=== PATIENT | male | born 1980 | race Caucasian/White ===

== ENCOUNTER → 2018-08-28 11:32 | Outpatient (CLI) | payer SELFPAY ==
[2018-08-28 11:50] VITALS: BP 117/76; PULSE 66; RESP 14; TEMP 36.7; O2SAT 98; BMI 27.7
--- NOTE | 2018-08-28 12:23 | HTC.HP_ITS ---
- Problem List (1) Hemophilia B Status: Chronic Subjective Date of Service:: 08/28/18 Chief Complaint: Hemophilia annual follow-up History of Present Illness: Hemophilia annual follow-up Used factor once first week of August 2018 after an accidental fall off ladder, bruised lower back, improving Health History: Past Medical History (Last Reviewed 08/28/18 @ 11:50 by Lauren Gao) HEMOPHILIA B FACTOR IX DEFICIENCY (Acute) Family History (Last Reviewed 08/28/18 @ 11:50 by Lauren Gao) Brother Hemophilia Allergies/Adverse Reactions: Allergy/AdvReac Type Severity Reaction Status Date / Time No Known Allergies Allergy Verified 08/28/18 11:50 Risk Factors Social History Smoking Status Never smoker Tobacco Risk Data: Tobacco Risk Smoking Status Never smoker Type of tobacco: Smokeless tobacco usage: Items/Day: Year started: Years used: Counseled to quit/cut down: Reason for no counseling performed: Reason for no pharmacotherapy: Tobacco use comments: Passive smoke exposure: Substance Risk Drug use: No Caffeine use [drinks/day]: 2 Alcohol use: Type of alcohol: Drinks per day: Has patient felt the need to cut down: Has the patient been annoyed by complaints: Has the patient felt guilty about drinking: Has the patient needed an eye electronic calibration technician in the mornings: Comments: occasional Review of Systems Constitutional:: Denies: Fever, Sweats, Weight loss, Appetite change, Chills Cardiovascular:: Denies: Chest pain, Palpitations, Dyspnea on exertion, Orthopnea, PND, Shortness of breath Respiratory: Denies: Cough, Hemoptysis, Shortness of Breath, Wheezing Gastrointestinal:: Denies: Abdominal pain, Nausea, Vomiting, Diarrhea, Constipation, Hematochezia Genitourinary: Denies: Dysuria, Hematuria, 15, Flank pain Musculoskeletal:: Reports: Back pain - Little residual pain from the fall. Denies: Myalgia, Arthralgia Skin: Denies: Rash, Skin Changes, Wounds Neurological:: Denies: Headache, Dizziness, Visual changes, Tinnitus, Hearing loss Psychiatric: Denies: Anxiety, Depression, Homicidal Ideations, Suicidal Ideations Vital Signs Height 5 ft 11 in Weight: 90.265 kg Weight in Pounds 199.0 lbs Pulse Ox 98 Temperature 98.0 F Pulse Rate 66 Respiratory Rate 14 Blood Pressure 117/76 Blood Pressure Position Sitting - Physical Exam General: Alert, Oriented x3, No apparent distress HEENT: Atraumatic, PERRLA, EOMI, Normocephalic Oropharynx:: Dry mucosa Neck:: Supple, Trachea midline. Negative for: JVD, bilateral Cardiac:: Regular rate, Regular rhythm, Normal S1, Normal S2. Negative for: Murmur Lungs: Clear to auscultation, Excusion symmetrical. Negative for: Rhonchi, Wheezes Abdomen:: Soft, Non-tender, Non-distended. Negative for: Hepatosplenomegaly Extremities:: Negative for: Cyanosis, Edema Neurological: Neuro grossly intact Skin:: Ecchymosis - 1 cm bruise overlying the right SI joint, mild tenderness. Negative for: Lesions, Rash, Petechiae Psychiatric:: Appropriate affect, Euthymic Lymphatics:: Negative for: Cervical lymphadenopathy, Supraclavicular lymphadenopathy Assessment and Plan Hemophilia annual screening visit. Reviewed: - On-demand therapy. - Appropriate oral hygiene and regular dental care is essential. - An appropriate exercise regimen encouraged for maintenance of a healthy weight, cardiovascular risk reduction, and positive effects on strength, flexibility, balance, joint stabilization, bone density, socialization, and psychological health. - Medicines that increase the risk of bleeding should be avoided namely anticoagulants, aspirin, and other nonsteroidal anti-inflammatory drugs (NSAIDs). - Herbal remedies and dkkh-fiz-uvalipa supplements such as fish oil, may increase bleeding risk. - Pain can be treated with local measures (eg, cold packs, immobilization, splinting), and acetaminophen. - Cardiovascular disease prevention : focus on diet, exercise, smoking avoidance, and control of hypertension and hypercholesterolemia. - Planning for invasive procedures and elective surgery. Patient was also evaluated by the Hemophilia multidisciplinary team on site and Dr Ahumada via video conferencing. Primary Care Provider: No Primary Care Phys Referring Provider: Mohit Ahumada MD
--- OUTSIDE RECORDS SUMMARY | 2018-10-14 05:03 | XMS RPT_ITS ---
:1980 Author Organization [facility] Care Team Providers Name Role Phone Braydon Echeverria Attending Unavailable Mohit Ahumada Referring Unavailable Primay Care Physicia, No Primary Care Unavailable Braydon Echeverria Attending Unavailable Mohit Ahumada Referring Unavailable Primay Care Physicia, No Primary Care Unavailable Braydon Echeverria Consulting Unavailable PROBLEMS PROBLEMS No Problem Records FoundPROCEDURES PROCEDURES No Procedure Records FoundRESULTS RESULTS HTC: OFFICE NOTE Observed: 08/28/2018 Status: F Source: [place] 12:24 PM [facility] Medical Records Department [address] [place] [id number] HTC: Office Note 08/28/18 1219 MR#: [id number] Acct: [id number] Name: ASHWIN LORD Rep #: [id number] : 1980 38 From: Braydon Echeverria MD PCP: Care Physician, No Primary Status: REG CLI Y Location: [facility] - Problem List (1) Hemophilia B Status: Chronic Subjective Date of Service:: 08/28/18 Chief Complaint: Hemophilia annual follow-up History of Present Illness: Hemophilia annual follow-up Used factor once first week of August 2018 after an accidental fall off ladder, bruised lower back, improving Health History: Past Medical History (Last Reviewed 08/28/18 @ 11:50 by Lauren Gao) HEMOPHILIA B FACTOR IX DEFICIENCY (Acute) Family History (Last Reviewed 08/28/18 @ 11:50 by Lauren Gao) Brother Hemophilia Allergies/Adverse Reactions: Allergy/AdvReac Type Severity Reaction Status Date / Time No Known Allergies Allergy Verified 08/28/18 11:50 Risk Factors Social History Smoking Status Never smoker Tobacco Risk Data: Tobacco Risk Smoking Status Never smoker Type of tobacco: Smokeless tobacco usage: Items/Day: Year started: Years used: Counseled to quit/cut down: Reason for no counseling performed: Reason for no pharmacotherapy: Tobacco use comments: Passive smoke exposure: Substance Risk Drug use: No Caffeine use [drinks/day]: 2 Alcohol use: Type of alcohol: Drinks per day: Has patient felt the need to cut down: Has the patient been annoyed by complaints: Has the patient felt guilty about drinking: Has the patient needed an eye arc cutter in the mornings: Comments: occasional Review of Systems Constitutional:: Denies: Fever, Sweats, Weight loss, Appetite change, Chills Cardiovascular:: Denies: Chest pain, Palpitations, Dyspnea on exertion, Orthopnea, PND, Shortness of breath Respiratory: Denies: Cough, Hemoptysis, Shortness of Breath, Wheezing Gastrointestinal:: Denies: Abdominal pain, Nausea, Vomiting, Diarrhea, Constipation, Hematochezia Genitourinary: Denies: Dysuria, Hematuria, 15, Flank pain Musculoskeletal:: Reports: Back pain - Little residual pain from the fall. Denies: Myalgia, Arthralgia Skin: Denies: Rash, Skin Changes, Wounds Neurological:: Denies: Headache, Dizziness, Visual changes, Tinnitus, Hearing loss Psychiatric: Denies: Anxiety, Depression, Homicidal Ideations, Suicidal Ideations Vital Signs Height 5 ft 11 in Weight: 90.265 kg Weight in Pounds 199.0 lbs Pulse Ox 98 - Physical Exam General: Alert, Oriented x3, No apparent distress HEENT: Atraumatic, PERRLA, EOMI, Normocephalic Oropharynx:: Dry mucosa Neck:: Supple, Trachea midline. Negative for: JVD, bilateral Cardiac:: Regular rate, Regular rhythm, Normal S1, Normal S2. Negative for: Murmur Lungs: Clear to auscultation, Excusion symmetrical. Negative for: Rhonchi, Wheezes Abdomen:: Soft, Non-tender, Non-distended. Negative for: Hepatosplenomegaly Extremities:: Negative for: Cyanosis, Edema Neurological: Neuro grossly intact Skin:: Ecchymosis - 1 cm bruise overlying the right SI joint, mild tenderness. Negative for: Lesions, Rash, Petechiae Psychiatric:: Appropriate affect, Euthymic Lymphatics:: Negative for: Cervical lymphadenopathy, Supraclavicular lymphadenopathy Assessment and Plan Hemophilia annual screening visit. Reviewed: - On-demand therapy. - Appropriate oral hygiene and regular dental care is essential. - An appropriate exercise regimen encouraged for maintenance of a healthy weight, cardiovascular risk reduction, and positive effects on strength, flexibility, balance, joint stabilization, bone density, socialization, and psychological health. - Medicines that increase the risk of bleeding should be avoided namely anticoagulants, aspirin, and other nonsteroidal anti-inflammatory drugs (NSAIDs). - Herbal remedies and dyiq-qtd-celljuk supplements such as fish oil, may increase bleeding risk. - Pain can be treated with local measures (eg, cold packs, immobilization, splinting), and acetaminophen. - Cardiovascular disease prevention : focus on diet, exercise, smoking avoidance, and control of hypertension and hypercholesterolemia. - Planning for invasive procedures and elective surgery. Patient was also evaluated by the Hemophilia multidisciplinary team on site and Dr Ahumada via video conferencing. Primary Care Provider: No Primary Care Phys Referring Provider: Mohit Ahumada MD 08/28/18 1224 <Electronically signed by Braydon Echeverria MD> Date Braydon Echeverria MD Cosigner Signature (if applicable): Date CC: Signed ALLERGIES ALLERGIES DATE TYPE / CODE NAME / CODE REACTION SEVERITY SOURCE 08/28/2018 Drug No Known Unknown [facility] Allergy/4160 Allergies/F00 [facility] 18858(SNOMED [id number](RXNOR Repository CT) M) ENCOUNTERS ENCOUNTERS ADMIT/DISCHARGE ACCOUNT ADMITTING ENCOUNTER LOCATION SOURCE NUMBER CLASS 08/28/2018 [id number] Ambulatory BMSBuilding:[address] [place].CF.[facility] Repository 08/28/2018 [id number] Ambulatory Caden Caden [facility] ing:[facility] Repository PAYERS PAYERS ENCOUNTER GUARANTOR PAYER SUBSCRIBER SOURCE 08/28/2018 ASHWIN Gunn Primary NOT GIVENUNK Caden [id number] Insurance:SELF PAY [place], [place] Number: Effective Repository [id number]: [phone] Date:2018-08-28 [phone] () 08/28/2018 ASHWIN Gunn Primary NOT GIVENUNK [place] [id number] Insurance:SELF PAY [place] Number: Effective Repository [phone]: [phone] Date:2018-05-22 [phone] ()
== END ==
PROVIDERS: Referring Provider Internal Medicine Hematology & Oncology; Visit Provider Internal Medicine Hematology & Oncology
DX: D67 Hereditary factor IX deficiency (principal)

== ENCOUNTER → 2019-08-27 09:57 | Outpatient (CLI) | payer SELFPAY ==
[2018-08-28 11:50] VITALS: BMI 27.7
[2019-08-27 10:14] VITALS: BP 125/76; PULSE 70; RESP 16; TEMP 36.6; O2SAT 96; BMI 28.0
--- NOTE | 2019-08-27 10:40 | WMO.HTC_ITS ---
Problem List (1) Hemophilia B Status: Chronic Subjective Date of Service:: 08/27/19 Chief Complaint: F/u for Hemophilia B. History of Present Illness: 39y.o.man with Hemophilia B, comes for follow up. Saw the Dentist, had fillings done. No factor replacement done this yr. Health History: Past Medical History (Last Reviewed 08/27/19 @ 10:12 by Radha Kenney) HEMOPHILIA B FACTOR IX DEFICIENCY (Acute) Family History (Last Updated 08/27/19 @ 10:13 by Radha Kenney) Brother Hemophilia Social History Social History: No changes Smoking Status Never smoker Allergies/Adverse Reactions: Allergy/AdvReac Type Severity Reaction Status Date / Time No Known Allergies Allergy Verified 08/27/19 10:12 Risk Factors Social History Social History: No changes Smoking Status Never smoker Tobacco Risk Data: Tobacco Risk Smoking Status Never smoker Type of tobacco: Smokeless tobacco usage: Never Items/Day: Year started: Years used: Counseled to quit/cut down: Reason for no counseling performed: Reason for no pharmacotherapy: Tobacco use comments: Passive smoke exposure: No Substance Risk Drug use: No Caffeine use [drinks/day]: 2 Alcohol use: Yes Type of alcohol: seldom Drinks per day: Has patient felt the need to cut down: Has the patient been annoyed by complaints: Has the patient felt guilty about drinking: Has the patient needed an eye bass guitar teacher in the mornings: Comments: Review of Systems Constitutional:: Denies: Fever, Sweats, Weight loss, Appetite change, Chills Cardiovascular:: Denies: Chest pain, Palpitations, Dyspnea on exertion, O rthopnea, PND, Shortness of breath Respiratory: Denies: Cough, Hemoptysis, Shortness of Breath, Wheezing Gastrointestinal:: Denies: Abdominal pain, Nausea, Vomiting, Diarrhea, Constipation, Hematochezia Genitourinary: Denies: Dysuria, Hematuria, 15, Flank pain Musculoskeletal:: Denies: Back pain, Myalgia, Arthralgia Skin: Denies: Rash, Skin Changes, Wounds Neurological:: Denies: Headache, Dizziness, Visual changes, Tinnitus, Hearing loss Psychiatric: Denies: Anxiety, Depression, Homicidal Ideations, Suicidal Ideations Vital Signs Height 5 ft 10 in Weight: 88.768 kg Weight in Pounds 195.7 lbs Pulse Ox 96 Temperature 97.8 F Pulse Rate 70 Respiratory Rate 16 Blood Pressure 125/76 Blood Pressure Position Sitting - Physical Exam General: Alert, Oriented x3, No apparent distress HEENT: Atraumatic, PERRLA, EOMI, Normocephalic Oropharynx:: Dry mucosa Neck:: Supple, Trachea midline. Negative for: JVD, bilateral Cardiac:: Regular rate, Regular rhythm, Normal S1, Normal S2. Negative for: Murmur Lungs: Clear to auscultation, Excusion symmetrical. Negative for: Rhonchi, Wheezes Abdomen:: Bowel sounds x 4, Soft, Non-tender, Non-distended. Negative for: Hepatosplenomegaly Extremities:: Negative for: Cyanosis, Edema Neurological: Neuro grossly intact Skin:: Negative for: Lesions, Rash, Petechiae, Ecchymosis Psychiatric:: Appropriate affect, Euthymic Lymphatics:: Negative for: Cervical lymphadenopathy, Supraclavicular lymphadenopathy, Axillary lymphadenopathy Therapy ROM Screening - Subjective Subjective:: pt states he has no concerns at this time. - Objective Right shoulder flex:: 175 Left shoulder flex:: 175 Right shoulder extension:: 50 Left shoulder extension:: 50 Right elbox flex/ext:: 145/0 Left elbox flex/ext:: 145/0 Right elbow circumference:: 30cm Left elbow circumference:: 29cm Right forearm sup/pron:: WNL Left forearm sup/pron:: WNL Right knee flexion:: 120 Left knee flexion:: 120 Right knee circumference:: 37cm Left knee circumference:: 36.5cm Right ankle dorsiflexion:: 25 Left ankle dorsiflexion:: 25 Right ankle Plan-flex:: 45 Left ankle Plan-flex:: 45 Right ankle circumference:: 27cm Left ankle circumference:: 26cm Right hip flexion:: 90 Left hip flexion:: 90 Right hip extension:: 20 Left hip extension:: 20 - Assessment Assessment:: Pt demo all ROM WNL - no concerns at this time. Assessment and Plan Hemophilia B, clinically stable. Plan is to continue expectant management with Factor replacement as needed. RTC 1 yr. Medications: Prescriptions This Visit Medication Instructions Recorded NK 08/27/19 Primary Care Provider: Mario Forrest MD Referring Provider:
== END ==
PROVIDERS: Family Provider Family Medicine; PCP Family Medicine; Visit Provider Internal Medicine Hematology & Oncology
DX: D67 Hereditary factor IX deficiency (principal)